=== PATIENT | female | born 1980 | race African-American/Black ===

== ENCOUNTER 2017-10-02 19:16 | Emergency (ER) | payer OTHER ==
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
[2017-10-02 19:39] VITALS: BP 140/71; PULSE 81; TEMP 98.3; BMI 25.4
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
[2017-10-02] MEDS ORDERED: KETOROLAC TROMETHAMINE 30 MG/1 ML VIAL IM ONE (21:07)
[2017-10-02] MEDS ORDERED: KETOROLAC TROMETHAMINE 30 MG/1 ML VIAL ONE (21:08)
== END 2017-10-02 21:23 | disposition home or self-care (01) ==
LOC: JERFT 19:16
PROC: 3E0233Z Introduction of Anti-inflammatory into Muscle, Percutaneous Approach (ICD-10-PCS; principal; 2017-10-02)
DX: S29.8XXA Other specified injuries of thorax, initial encounter (principal); V49.49XA Driver injured in collision with other motor vehicles in traffic accident, initial encounter; Y92.414 Local residential or business street as the place of occurrence of the external cause; Y93.89 Activity, other specified; Y99.8 Other external cause status; F98.8 Other specified behavioral and emotional disorders with onset usually occurring in childhood and adolescence
CPT/HCPCS: 84703; 99281-25